=== PATIENT | female | born 1985 | race Caucasian/White ===

== ENCOUNTER 2016-11-03 16:54 | Emergency (ER) | payer MEDICAID ==
[~2016-11-03] VITALS: Ht 165.1 cm; Wt 54.4 kg
[2016-11-03] MEDS ORDERED: LIDOCAINE HCL 1% 20 ML VIAL ONE (17:41)
[2016-11-03] MEDS ORDERED: CEPHALEXIN MONOHYDRATE 500 MG CAPSULE PO ONE (17:45)
[2016-11-03] MEDS ORDERED: SULFAMETH/TRIMETH 800/160 MG TABLET PO ONE (17:45)
[2016-11-03] MEDS ORDERED: LIDOCAINE HCL 1% 20 ML VIAL IJ ONE (17:45)
== END 2016-11-03 18:01 | disposition home or self-care (01) ==
LOC: ER 16:54
DX: L02.414 Cutaneous abscess of left upper limb (principal); F17.200 Nicotine dependence, unspecified, uncomplicated; Z59.0 Homelessness
CPT/HCPCS: 10060; 99283; A4217; A4663; J3490

== ENCOUNTER 2017-12-27 20:38 | Emergency (ER) | payer MEDICAID ==
--- NOTE | 2017-12-27 21:02 | NUR ---
PATIENT LEFT WITHOUT BEING TRIAGED. PATIENT STABLE IN WAITING AREA PRIOR TO LEAVING. PATIENT STATES SHE NO LONG HAS VOMITING AND DOES NOT WANT TO BE SEEN AT THIS TIME.
== END 2017-12-27 21:08 | disposition left against medical advice (07) ==
LOC: ER 20:39
DX: Z53.21 Procedure and treatment not carried out due to patient leaving prior to being seen by health care provider (principal)

== ENCOUNTER → 2018-04-22 | Emergency (ER) | payer SELFPAY ==
[~2018-04-22] VITALS: Ht 165.1 cm; Wt 54.4 kg
[~2018-04-22] MED LIST: AMOXicillin 250 MG CAPSULE ONE; AMOXicillin 250 MG CAPSULE PO ONE; SULFAMETH/TRIMETH 800/160 MG TABLET ONE; SULFAMETH/TRIMETH 800/160 MG TABLET PO ONE
--- NOTE | 2018-04-22 02:41 | NUR ---
Pt. ambulated into ED w/ c/o sore throat x 20 days and (2) R FA/ R upper arm extremity abscesses x 3 days, pt. reports being an IV drug user and took tylenol for pain at home, denies F/C/N/V/D
--- NOTE | 2018-04-22 02:52 | NUR ---
Patient discharged to home in stable conditon. Written and verbal after care instructions given. Patient verbalizes understanding of instructions. Pt. d/c w/ prescription per MD order, d/c papers signed, ID band removed, all belongings w/ pt., ambulated out of ED w/ steady gait accompanied by male cell coverer, CELSA
== END | disposition home or self-care (01) ==
LOC: ER 02:17
DX: J02.9 Acute pharyngitis, unspecified (principal); L02.413 Cutaneous abscess of right upper limb; F17.200 Nicotine dependence, unspecified, uncomplicated; F12.10 Cannabis abuse, uncomplicated; F15.10 Other stimulant abuse, uncomplicated; Z59.0 Homelessness
CPT/HCPCS: A4663

== ENCOUNTER 2018-04-24 09:23 | Emergency (ER) | payer MEDICAID ==
[~2018-04-24] VITALS: Ht 165.1 cm; Wt 54.4 kg
[2018-04-24] MEDS ORDERED: LIDOCAINE HCL 2% 20 ML VIAL ONE (09:42)
[2018-04-24] MEDS ORDERED: LIDOCAINE HCL 2% 20 ML VIAL IJ ONE (09:45)
[2018-04-24] MEDS ORDERED: CEphaleXIN 500 MG CAPSULE ONE (10:01)
--- NOTE | 2018-04-24 10:01 | NUR ---
Dr Alvarez at the bedside and performed I&D on RT FA, pt tolorated well.
[2018-04-24] MEDS ORDERED: SULFAMETH/TRIMETH 800/160 MG TABLET ONE (10:10)
[2018-04-24] MEDS ORDERED: CEFAZOLIN 1 G VIAL ONE (10:10)
[2018-04-24] MEDS ORDERED: SULFAMETH/TRIMETH 800/160 MG TABLET PO ONE (10:15)
[2018-04-24] MEDS ORDERED: CEFAZOLIN 1 G VIAL IM ONE (10:15)
[2018-04-24 10:25] VITALS: BP 113/88
--- NOTE | 2018-04-24 10:26 | NUR ---
Patient discharged to home in stable conditon. Written and verbal after care instructions given. Patient verbalizes understanding of instructions.
== END 2018-04-24 10:25 | disposition home or self-care (01) ==
LOC: ER 09:23
DX: L02.413 Cutaneous abscess of right upper limb (principal); F17.290 Nicotine dependence, other tobacco product, uncomplicated; Z59.0 Homelessness
CPT/HCPCS: 10060; 96372; 99283; 99406; J0690; J3490; A4217; A4663

== ENCOUNTER 2018-11-17 18:30 | Emergency (ER) | payer MEDICAID ==
[~2018-11-17] VITALS: Ht 165.1 cm; Wt 58.1 kg
--- NOTE | 2018-11-17 19:00 | NUR ---
PT WAS EVALUATED BY DR SQUIRES. PT DECIDED TO LEAVE HOSPITAL ER AMA. DR SQUIRES EXPLAINED ALL RISKS OF LEAVING HOSPITAL ER [facility]. PT VERBALISED FULL UNDERSTANDING OF DR SQUIRES EXPLANATIONS. PT SIGNED AMA FORM AND LEFT HOSPITAL ER. GAIT IS STABLE, NO S/S OF ACUTE DISTRESS AT THIS TIME.
[2018-11-17 19:05] VITALS: BP 136/62
== END 2018-11-17 19:06 | disposition left against medical advice (07) ==
LOC: EDBD → ER 18:36
DX: L02.413 Cutaneous abscess of right upper limb (principal); R42 Dizziness and giddiness; F15.10 Other stimulant abuse, uncomplicated; F11.10 Opioid abuse, uncomplicated; F32.9 Major depressive disorder, single episode, unspecified; F17.200 Nicotine dependence, unspecified, uncomplicated; Z59.0 Homelessness
CPT/HCPCS: A4663

== ENCOUNTER 2018-11-21 19:39 | Emergency (ER) | payer MEDICAID ==
[~2018-11-21] VITALS: Ht 165.1 cm; Wt 56.7 kg
--- NOTE | 2018-11-21 19:58 | NUR ---
Dr. Mejia with patient in room at bedside.
[2018-11-21] MEDS ORDERED: LIDOCAINE 1%-EPI 1:100,000 20 ML VIAL IJ ONE (20:00)
--- NOTE | 2018-11-21 20:56 | NUR ---
Patient discharged to home in stable conditon. Written and verbal after care instructions given. Patient verbalizes understanding of instructions. patient self ambualtory with steady gait. patient signed homeless waiver form and refused services. patient is alert and oriented and will be taken home with boyfriend, per patient. Patient states she is no longer in discomfort and denies any pain at this time.
== END 2018-11-21 20:40 | disposition home or self-care (01) ==
LOC: ER 19:48
DX: L02.414 Cutaneous abscess of left upper limb (principal); F32.9 Major depressive disorder, single episode, unspecified; F11.10 Opioid abuse, uncomplicated; F15.10 Other stimulant abuse, uncomplicated; F17.200 Nicotine dependence, unspecified, uncomplicated; Z59.0 Homelessness
CPT/HCPCS: 10060; 87070; 87077; 99284; J3490; A4217; A4663